=== PATIENT | female | born 1965 | race American Indian/Alaskan Native ===

== ENCOUNTER 2016-08-30 09:45 | Emergency (ER) | payer OTHER ==
[2016-08-30 09:46] VITALS: BMI 36.6
[2016-08-30 09:51] VITALS: TEMP 98.1; O2SAT 99
--- NOTE | 2016-08-30 10:13 | ED PDOC ---
Arrival/HPI - General Chief Complaint: ENT Problem Time Seen by Provider: 08/30/16 09:50 Historian: Patient - History of Present Illness Narrative History of Present Illness (Text): 08/30/16 10:10 This 50 yo female with pmh htn, presents to this ED c/o dry cough x 3-4 weeks. Patient denies sob, cp, rash, recent travel, sick contact, wheezing, or dizziness. Patient stated she started Lisinopril about one year ago. Time/Duration: Prior to Arrival Context: Home Past Medical History - Provider Review Nursing Documentation Reviewed: Yes - Infectious Disease Hx of Infectious Diseases: None - Tetanus Immunization Tetanus Immunization: Unknown - Reproductive Menopause: Yes - Past Medical History Past Medical History: No Previous - Cardiac Hx Cardiac Disorders: Yes Hx Hypertension: Yes - Pulmonary Hx Respiratory Disorders: No - Neurological Hx Neurological Disorder: No - HEENT Hx HEENT Disorder: No - Renal Hx Renal Disorder: No - Endocrine/Metabolic Hx Endocrine Disorders: No - Hematological/Oncological Hx Blood Disorders: No - Integumentary Hx Dermatological Disorder: No - Musculoskeletal/Rheumatological Hx Musculoskeletal Disorders: Yes Hx Arthritis: Yes Hx Osteoarthritis: Yes - Gastrointestinal Hx Gastrointestinal Disorders: No - Genitourinary/Gynecological Hx Genitourinary Disorders: No - Psychiatric Hx Psychophysiologic Disorder: No Hx Depression: No Hx Emotional Abuse: No Hx Physical Abuse: No Hx Substance Use: No - Surgical History Hx Section: Yes Hx Hysterectomy: Yes - Anesthesia Hx Anesthesia: Yes Hx Anesthesia Reactions: No Hx Malignant Hyperthermia: No - Suicidal Assessment Feels Threatened In Home Enviroment: No Family/Social History - Physician Review Nursing Documentation Reviewed: Yes Family/Social History: No Known Family HX Smoking Status: Never Smoked Hx Alcohol Use: No Hx Substance Use: No Hx Substance Use Treatment: No Allergies/Home Meds Allergies/Adverse Reactions: Allergies aspirin Allergy (Verified 08/30/16 09:51) RASH shrimp Allergy (Verified 08/30/16 09:51) SWELLING Home Medications: Home Meds Medication Instructions Recorded Confirmed Lisinopril/Hydrochlorothiazide 1 tab PO BID 08/20/14 08/30/16 [Lisinopril-Hydrochlorothiazide 25 mg-20 mg] NIFEdipine ER [Procardia XL] 90 mg PO DAILY 08/20/14 08/30/16 Aspirin/Acetaminophen/Caffeine 1 tab PO PRN PRN 02/19/16 08/30/16 [Excedrin Extra Strength Caplet] traMADol [Ultram] 50 mg PO PRN PRN 02/19/16 08/30/16 Review of Systems - Review of Systems Constitutional: Normal. absent: Fatigue, Weight Change, Fevers Eyes: Normal ENT: Normal. absent: Sore Throat, Rhinorrhea, Epistaxis Respiratory: Cough. absent: Wheezing Cardiovascular: Normal. absent: Chest Pain, Palpitations Gastrointestinal: Normal. absent: Abdominal Pain, Nausea, Vomiting Genitourinary Female: Normal. absent: Dysuria, Frequency, Hematuria Musculoskeletal: Normal. absent: Back Pain, Neck Pain Skin: Normal Neurological: Normal. absent: Headache, Dizziness Endocrine: Normal Hemo/Lymphatic: Normal Psychiatric: Normal Physical Exam Vital Signs Temp Pulse Resp BP Pulse Ox 08/30/16 11:12 79 18 121/71 99 08/30/16 09:54 98.1 F 90 16 119/79 99 08/30/16 09:50 98.1 F 83 18 119/79 99 Temperature: Afebrile Blood Pressure: Normal Pulse: Regular Respiratory Rate: Normal Appearance: Positive for: Well-Appearing, Non-Toxic, Comfortable Pain Distress: None Mental Status: Positive for: Alert and Oriented X 3 - Systems Exam Head: Present: Atraumatic, Normocephalic Pupils: Present: PERRL Extroacular Muscles: Present: EOMI Conjunctiva: Present: Normal Mouth: Present: Moist Mucous Membranes Neck: Present: Normal Range of Motion Respiratory/Chest: Present: Clear to Auscultation, Good Air Exchange. No: Respiratory Distress, Accessory Muscle Use, Wheezes, Retracting, Rhonchi Cardiovascular: Present: Regular Rate and Rhythm, Normal S1, S2. No: Murmurs Abdomen: Present: Normal Bowel Sounds. No: Tenderness, Distention, Peritoneal Signs Back: Present: Normal Inspection. No: CVA Tenderness Upper Extremity: Present: Normal Inspection, Normal ROM, NORMAL PULSES, Neurovascularly Intact, Capillary Refill < 2s. No: Cyanosis, Edema Lower Extremity: Present: Normal Inspection, NORMAL PULSES, Normal ROM, Neurovascularly Intact, Capillary Refill < 2 s. No: Edema Neurological: Present: GCS=15, CN II-XII Intact, Speech Normal, Motor Func Grossly Intact, Normal Sensory Function, Normal Cerebellar Funct, Gait Normal, Memory Normal Skin: Present: Warm, Dry, Normal Color. No: Rashes Psychiatric: Present: Alert, Oriented x 3, Normal Insight, Normal Concentration Medical Decision Making ED Course and Treatment: 08/30/16 10:58 Re-evaluation. Patient feels better. Discussed results and plan with patient who expresses understanding. All questions answered and there is agreement with the plan to discharge home with instructions. Patient stable for discharge. Return if symptoms persist or worsen Patient was advised that Lisinopril could be the cause of dry cough. To check this with her PMD in 1-2 days Re-evaluation Time: 10:58 Reassessment Condition: Re-examined, Improved - RAD Interpretation Radiology Orders: 08/30/16 10:11 CHEST TWO VIEWS (PA/LAT) [RAD] Stat - Medication Orders Current Medication Orders: Discontinued Medications Promethazine HCl/Codeine (Phenergan/Codeine Oral Syrup) 5 ml PO STAT STA Stop: 08/30/16 10:17 Last Admin: 08/30/16 10:44 Dose: 5 ml Promethazine HCl/Codeine (Phenergan/Codeine Oral Syrup) Confirm Administered Dose 5 ml .ROUTE .STK-MED ONE Stop: 08/30/16 10:45 Last Admin: 08/30/16 10:44 Dose: Disposition/Present on Arrival - Present on Arrival Any Indicators Present on Arrival: No History of DVT/PE: No History of Uncontrolled Diabetes: No Urinary Catheter: No History of Decub. Ulcer: No History Surgical Site Infection Following: None - Disposition Have Diagnosis and Disposition been Completed?: Yes Diagnosis: Cough due to TIMO inhibitor Disposition: HOME/ ROUTINE Disposition Time: 10:59 Condition: GOOD Discharge Instructions (ExitCare): Acute Cough (ED) Additional Instructions: Call private doctor for follow up visit in 1-2 days. Ask your doctor if Lisinopril could be causing your cough. Take medication as instructed. Prescriptions: Benzonatate [Tessalon Perles] 100 mg PO TID PRN #30 sgl PRN Reason: Cough Promethazine/Codeine [Phenergan/Codeine Oral Syrup] 5 ml PO Q6H PRN #120 ml PRN Reason: Cough Referrals: PCP,NO [Non-Staff] - Follow up with primary Radha Lopez MD [Primary Care Provider] - Follow up with primary
[2016-08-30] MEDS ORDERED: Promethazine/Cod 6.25mg-10mg/5ml Syr UD PO STA (10:16)
[2016-08-30] MEDS ORDERED: Promethazine/Cod 6.25mg-10mg/5ml Syr UD ONE (10:44)
[2016-08-30 11:13] VITALS: BP 121/71; PULSE 79; RESP 18
--- NOTE | 2016-08-30 15:22 | RAD ---
HISTORY: cough COMPARISON: No prior. TECHNIQUE: Chest PA and lateral FINDINGS: LUNGS: No active pulmonary disease. PLEURA: No significant pleural effusion identified. No pneumothorax apparent. CARDIOVASCULAR: Normal. OSSEOUS STRUCTURES: No significant abnormalities. VISUALIZED UPPER ABDOMEN: Normal. OTHER FINDINGS: None. IMPRESSION: No active disease.
== END 2016-08-30 11:15 | disposition home or self-care (01) ==
LOC: ED 09:45
DX: R05 Cough (principal); I10 Essential (primary) hypertension; M19.90 Unspecified osteoarthritis, unspecified site

== ENCOUNTER 2017-03-19 17:03 | Emergency (ER) | payer OTHER ==
[2017-03-19 17:04] VITALS: BMI 36.6
== END 2017-03-19 19:24 | disposition left against medical advice (07) ==
LOC: ED 17:03
DX: Z02.89 Encounter for other administrative examinations (principal); I10 Essential (primary) hypertension

== ENCOUNTER 2018-07-01 08:36 | Outpatient (CLI) | payer MEDICAID | END 2018-07-01 08:37 | disposition home or self-care (01) | LOC: RAD 08:36 ==

== ENCOUNTER 2018-08-04 10:13 | Outpatient (CLI) | payer MEDICAID | END 2018-08-04 10:14 | disposition home or self-care (01) | LOC: LAB 10:13 ==